=== PATIENT | male | born 1985 | race Caucasian/White ===

== ENCOUNTER 2025-04-23 19:58 | Emergency (ER) | payer OTHER, SELFPAY ==
[2025-04-23 20:06] VITALS: BP 100/58
[2025-04-23 20:23] VITALS: BP 120/63
[2025-04-23 20:25] VITALS: BMI 20.9
[2025-04-23 20:42] LABS: Hematocrit 42.0 % (39.0-52.0); Hemoglobin 15.5 g/dL (13.0-18.0); Mean Corp Hgb Conc. 36.9 g/dL (33.0-37.0); Mean Corpuscular Volume 96.1 fL (80.0-94.0); Nucleated Red Blood Cells % 0 % (-); Platelet Count 216 10^3/uL (130-400); Red Cell Dist. Width 12.4 % (11.5-14.5)
[2025-04-23 21:00] VITALS: BP 115/100
--- NOTE | 2025-04-23 21:19 | ED.GENMED ---
History of Present Illness
General
Chief Complaint: Fall
Time Seen by Provider: 04/23/25 20:24
History of Present Illness
History of Present Illness:
40-year-old male with history of severe MS presents to the emergency department for evaluation of multiple injuries sustained after a fall while carrying a large air conditioning unit. He apparently tripped and fell forward on top of an air
conditioner and struck his head as well as face and chest against the unit. He reports right chest wall pain and dyspnea as well as headache and neck pain. Denies any pelvic or lower extremity pain as a result of this injury. He is not on any
blood thinners
Past History
Past History
ED Past Medical History: Arrthythmia (In his childhood but unable to recall) and Other (Multiple sclerosis, mom reports structural heart defect as a child but cannot recall, RA); Negative Asthma, HTN, Hypercholesterolemia or NIDDM
ED Past Surgical History: Cardiac (Pulmonary Valve repair at )
Social History
Tobacco: Smoker
Alcohol: Occasional
Drug: Narcotics (Clean now, former heroin abuser)
Personal: Single
Living: with family
Employment: Employed
Family History
Family History: Unable to obtain
Review of Systems
Review of Systems
Allergies reviewed?: Yes
All Other Systems: ROS reviewed and negative except as documented in HPI and ROS
Phy Exam
Physical Exam
Physical Exam:
GEN: Well appearing, NAD, WDWN
Eyes: PERRLA, EOMs intact, no scleral icterus
HENT: NCAT, oral mucosa moist, positive midline diffuse cervical spine tenderness with no palpable deformity
Lungs: Grossly diminished breath sounds bilaterally, moderate swelling to the right posterior thorax without ecchymosis or crepitus
Cardiac: Tachycardic, regular
Abdomen: S, NT, ND, NABS, no masses or hepatosplenomegaly
Neuro: AO x 3, no focal deficits to BUE/BLE, normal sensation throughout
MSK: No gross deformity or ecchymosis. No edema. No digital clubbing
Skin: No rashes, petechiae. Normal color, no pallor or jaundice.
Psych: Calm, cooperative, proper hygiene
Course
Orders/Labs/Results
Orders:
Orders
04/23/25 20:10
Electrocardiogram (*1) Urgent
Reason for Study: Other
Other Reason for Exam: fall
CT Cervical Spine W/o Iv Contr Urgent
Comment:
Reason For Exam: fall
CT Head W/o Iv Contrast Urgent
Comment:
Reason For Exam: head injury
04/23/25 20:11
EKG- Treatment ONCE
04/23/25 20:30
CR Chest Portable - 1 View Urgent
Comment:
Reason For Exam: trauma
Reason Study Needs to be Portable: Unable to Transport
04/23/25 20:31
Complete Blood Count/With Diff Urgent
Comprehensive Metabolic Panel Urgent
PTT Urgent
04/23/25 20:41
CT Chest W/o Iv Contrast Urgent
Comment:
Reason For Exam: fall, R chest wall pain
Abnormal Lab Results
04/23/25
20:31
RBC 4.37 L 10^6/uL
(4.70-6.10)
MCV 96.1 H fL
(80.0-94.0)
MCH 35.5 H pg
(27.0-31.0)
Absolute Neuts (auto) 6.7 H 10^3/uL
(1.4-6.5)
Absolute Lymphs (auto) 1.1 L 10^3/uL
(1.2-3.4)
Absolute Monos (auto) 0.8 H 10^3/uL
(0.1-0.6)
Neutrophils % 76.5 H %
(42.2-75.2)
Lymphocytes % 12.7 L %
(20.5-51.1)
Chloride 111 H mmol/L
(98-107)
Carbon Dioxide 20 L mmol/L
(22-30)
BUN 6 L mg/dl
(9-20)
Creatinine 0.6 L mg/dL
(0.7-1.3)
04/23/25 20:31
04/23/25 20:31
Vital Signs
Initial and Last Documented VS:
Initial Vital Signs
Temp Pulse Resp BP Pulse Ox
98.0 F 121 20 100/58 93
04/23/25 20:06 04/23/25 20:06 04/23/25 20:06 04/23/25 20:06 04/23/25 20:06
Last Documented Vital Signs
Temp Pulse Resp BP Pulse Ox
98.0 F 93 16 119/60 96
04/23/25 20:06 04/23/25 21:45 04/23/25 21:45 04/23/25 21:43 04/23/25 21:45
MDM/Problems Addressed
MDM/Problems Addressed:
Initial bedside portable chest obtained due to visible swelling of the right hemithorax concerning for pneumothorax however this was reassuring. Patient sent for CT scans which showed no evidence of traumatic abnormalities. Discharged in stable
condition
*Pulse Oximetry
SaO2: 92
Oxygen Mode of Delivery: Room air
Patient hypoxic: no
*Critical Care Note
Total Time (30-74mins, 75-104mins- exclusive of procedures): Not Applicable
ED Attending Note
-
Portions of this chart may have been created with voice recognition software.� Occasional wrong word or��sound alike� substitutions may have occurred due to the inherent limitations of voice recognition software.
Discharge Plan
Departure
Patient Disposition: Home (Routine Discharge)
Date of Disposition: 04/23/25
Time of Disposition: 22:16
Patient with high blood pressure during this ER visit?: No
Discharge Problem:
Fall, Chest wall contusion, Cervical muscle strain
Instructions: Preventing falls in adults
Prescriptions:
No Action
teriflunomide [Aubagio] 14 MG tablet
PO
Referrals:
Andrew Lo DO [Family Provider, Family Practice]
Interventions
Interventions:
*Risk Screen - Suicide Last Done: 04/23/25 20:25
*General Assessment Last Done: 04/23/25 20:06
*Neglect/Abuse Screening Last Done: 04/23/25 20:25
*ED- Fall Risk Assessment Last Done: 04/23/25 20:25
*ED COVID-19 Vaccine History Last Done: 04/23/25 20:25
ED-Musculoskeletal Assessment Last Done: 04/23/25 20:27
ED- Neurological Assessment Last Done: 04/23/25 20:27
ED-Skin Assessment Last Done: 04/23/25 20:27
Discharge Date and Time
Print Language: URDU
[2025-04-23 21:20] LABS: APTT 30.3 Sec (23.4-35.0)
[2025-04-23 21:43] VITALS: BP 119/60
[2025-04-23 21:57] LABS: ALT (SGPT) < 10 U/L (0-50); AST (SGOT) 19 U/L (17-59); Albumin 4.2 g/dl (3.5-5.0); Alkaline Phosphatase 77 U/L (38-126); Blood Urea Nitrogen 6 mg/dl (9-20); Calcium 9.2 mg/dl (8.4-10.2); Carbon Dioxide 20 mmol/L (22-30); Chloride 111 mmol/L (98-107); Estimated Creatinine Clearance > 125 ml/min; Glucose 94 mg/dl (70-99); Potassium 3.7 mmol/L (3.5-5.1); Sodium 142 mmol/L (135-145); Total Protein 6.7 g/dl (6.3-8.2); eGFR > 60.00
[2025-04-23 22:00] VITALS: BP 106/77
== END 2025-04-23 22:41 | disposition home or self-care (01) ==
LOC: EMR 19:58
PROVIDERS: Emergency Medicine; EMERGENCY PHYSICIAN Emergency Medicine; FAMILY PHYSICIAN Family Medicine
DX: S16.1XXA Strain of muscle, fascia and tendon at neck level, initial encounter (principal); S20.211A Contusion of right front wall of thorax, initial encounter; S09.90XA Unspecified injury of head, initial encounter; R06.00 Dyspnea, unspecified; R51.9 Headache, unspecified; M54.2 Cervicalgia; W01.198A Fall on same level from slipping, tripping and stumbling with subsequent striking against other object, initial encounter; Y93.89 Activity, other specified; G35 Multiple sclerosis; F17.200 Nicotine dependence, unspecified, uncomplicated; Z88.2 Allergy status to sulfonamides; Z88.8 Allergy status to other drugs, medicaments and biological substances
CPT/HCPCS: 99285; 70450; 71045; 71250; 72125; 80053; 85025; 85730